=== PATIENT | male | born 1960 | race Caucasian/White ===

== ENCOUNTER 2017-11-04 13:15 | Emergency (ER) | payer OTHER ==
[~2017-11-04] VITALS: Ht 177.8 cm; Wt 88.0 kg
[2017-11-04 13:28] VITALS: BP 156/75; PULSE 57; RESP 16; TEMP 98.3; O2SAT 97
[2017-11-04 14:21] LABS: BASOPHIL # 0.1 TH/MM3 (0-0.2); BASOPHIL % 1.2 % (0.0-2.0); EOSINOPHIL # 0.3 TH/MM3 (0-0.4); EOSINOPHIL % 5.1 % (0.0-4.0); HEMATOCRIT 44.9 % (39.0-51.0); HEMOGLOBIN 15.4 GM/DL (13.0-17.0); LYMPH % 27.2 % (9.0-44.0); LYMPHOCYTE # 1.8 TH/MM3 (1.0-4.8); MEAN CELL VOLUME 86.3 FL (80.0-100.0); MEAN CORPUSCULAR HEMOGLOBIN 29.6 PG (27.0-34.0); MEAN CORPUSCULAR HGB CONC 34.3 % (32.0-36.0); MEAN PLATELET VOLUME 7.6 FL (7.0-11.0); MONO % 7.3 % (0.0-8.0); MONOCYTE # 0.5 TH/MM3 (0-0.9); NEUT % 59.2 % (16.0-70.0); PLATELET COUNT 249 TH/MM3 (150-450); RED CELL DISTRIBUTION WIDTH 13.4 % (11.6-17.2); WHITE BLOOD COUNT 6.8 TH/MM3 (4.0-11.0)
--- NOTE | 2017-11-04 14:26 | RADRPT ---
EXAM DATE/TIME: 11/04/2017 14:21 [facility] COMPARISON: No previous studies available for comparison. INDICATIONS : Dizziness. MEDICAL HISTORY : Hypertension. SURGICAL HISTORY : None. ENCOUNTER: Initial ACUITY: 1 day PAIN SCORE: 0/10 LOCATION: Bilateral chest FINDINGS: PA and lateral views of the chest demonstrate the lungs to be symmetrically aerated without evidence of mass, infiltrate or effusion. The cardiomediastinal contours are unremarkable. Osseous structure s are intact. CONCLUSION: 1. No acute cardiopulmonary disease. Jong Cook MD on November 04, 2017 at 14:23 Board Certified Radiologist. This report was verified electronically.
[2017-11-04 14:29] LABS: PROTHROMBIN TIME - PATIENT 9.8 SEC (9.8-11.6)
[2017-11-04 14:41] LABS: ALT (GPT) 19 U/L (12-78); AST (GOT) 12 U/L (15-37); BICARBONATE 27.7 MEQ/L (21.0-32.0); BLOOD UREA NITROGEN 16 MG/DL (7-18); CALCIUM 9.1 MG/DL (8.5-10.1); CHLORIDE 108 MEQ/L (98-107); CREATININE 0.82 MG/DL (0.60-1.30); GLOMERULAR FILTRATION RATE 97 ML/MIN (>89); GLUCOSE,RANDOM 99 MG/DL (74-106); SODIUM (NA) 143 MEQ/L (136-145)
[2017-11-04 14:44] LABS: ALKALINE PHOSPHATASE 66 U/L (45-117); TOTAL BILIRUBIN ADULT 0.5 MG/DL (0.2-1.0); TOTAL PROTEIN 6.9 GM/DL (6.4-8.2)
[2017-11-04 14:51] LABS: TROPONIN I LESS THAN 0.02 NG/ML (0.02-0.05)
--- NOTE | 2017-11-04 15:48 | RADRPT ---
EXAM DATE/TIME: 11/04/2017 14:53 [facility] COMPARISON: No previous studies available for comparison. INDICATIONS : Dizzy RADIATION DOSE: 56.35 CTDIvol (mGy) MEDICAL HISTORY : None SURGICAL HISTORY : None. ENCOUNTER: Initial ACUITY: 1 day PAIN SCALE: 0/10 LOCATION: cranial TECHNIQUE: Multiple contiguous axial images were obtained of the head. Using automated exposure control and adj ustment of the mA and/or kV according to patient size, radiation dose was kept as low as reasonably a chievable to obtain optimal diagnostic quality images. DICOM format image data is available electro nically for review and comparison. FINDINGS: CEREBRUM: Mild diffuse cerebral atrophy. The ventricles are normal for degree of atrophy. No evidence of midli ne shift, mass lesion, hemorrhage or acute infarction. No extra-axial fluid collections are seen. POSTERIOR FOSSA: The cerebellum and brainstem are intact. The 4th ventricle is midline. The cerebellopontine angle i s unremarkable. EXTRACRANIAL: The visualized portion of the orbits is intact. SKULL: The calvaria is intact. No evidence of skull fracture. CONCLUSION: 1. No acute intracranial abnormality. Jong Cook MD on November 04, 2017 at 15:44 Board Certified Radiologist. This report was verified electronically.
[2017-11-04] MEDS ORDERED: PROCHLORPERAZINE INJ 10 MG/2 ML VIAL IV PUSH ONE (16:00)
[2017-11-04] MEDS ORDERED: diphenhydrAMINE HCL 50 MG/ML VIAL IV PUSH ONE (16:00)
--- NOTE | 2017-11-04 16:06 | PD ---
HPI . Near syncope Chief Complaint: Syncope/Near-Syncope Time Seen by Provider: 15:47 Travel History International Travel<30 days: No Contact w/Intl Traveler<30days: No Traveled to known affect area: No History of Present Illness HPI This patient presented to us by EVAC with the chief complaint of a near syncopal episode. He states that he had just finished eating lunch and had gone to get a refill of his drink before leaving to go back to work. 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 He states that he was standing at the counter and suddenly developed a pressure in his head that made him feel off balance. He denies vertigo. He states that he stood there for a minute and then went back to his truck. He states that his symptoms became so severe that he sat down beside his truck and called 911. He was then brought to us for evaluation and treatment. He states that he never actually had a syncopal event. He just felt like he was going to pass out. He continues to complain with a pressure- like sensation in his head. Onset of symptoms was shortly prior to arrival. Symptom duration was maybe 30 minutes. There were no modifying factors. The patient does report a previous similar history. He is actually currently being evaluated by a biologist aide for this and is wearing an event monitor. [facility] Social History Tobacco Use: No Allergies-Medications (Allergen,Severity, Reaction): Coded Allergies: Sulfa (Sulfonamide Antibiotics) (Verified Allergy, Severe, 11/04/17) Reported Meds & Prescriptions Reported Meds & Active Scripts Active Reported Bisoprolol (Bisoprolol Fumarate) 5 Mg Tab 5 Mg PO DAILY Review of Systems Except as stated in HPI: all other systems reviewed are Neg General / Constitutional: No: Fever, Chills Eyes: No: Diploplia, Blurred Vision HENT: Positive: Headaches, Lightheadedness Cardiovascular: No: Chest Pain or Discomfort Respiratory: No: Shortness of Breath Gastrointestinal: No: Nausea, Vomiting, Diarrhea Physical Exam Narrative GENERAL: Awake and alert and in no distress. SKIN: warm/dry. Normal color and turgor. HEAD: Normocephalic. Atraumatic. EYES: Pupils equal and round. No scleral icterus. No injection or drainage. ENT: No nasal bleeding or discharge. Mucous membranes pink and moist. NECK: Trachea midline. Full range of motion without pain.. CARDIOVASCULAR: Regular rate and rhythm. Heart sounds are normal. RESPIRATORY: No accessory muscle use. Clear to auscultation. Breath sounds equal bilaterally. GASTROINTESTINAL: Abdomen soft. Nontender. Bowel sounds present. Nondistended. MUSCULOSKELETAL: No obvious deformities. NEUROLOGICAL: Awake and alert. No obvious cranial nerve deficits. Motor grossly within normal limits. Normal speech. PSYCHIATRIC: Appropriate mood and affect; insight and judgment normal. Data Data Last Documented VS Vital Signs Date Time Temp Pulse Resp B/P (MAP) Pulse Ox O2 Delivery O2 Flow Rate FiO2 11/04/17 13:28 98.3 57 16 156/75 (102) 97 Orders Orders Electrocardiogram (11/04/17 13:32) Complete Blood Count With Diff (11/04/17 13:32) Comprehensive Metabolic Panel (11/04/17 13:32) Iv Access Insert/Monitor (11/04/17 13:32) Ckmb (Isoenzyme) Profile (11/04/17 13:41) Troponin I (11/04/17 13:41) Prothrombin Time / Inr (Pt) (11/04/17 13:41) Act Partial Throm Time (Ptt) (11/04/17 13:41) Thyroid Stimulating Hormone (11/04/17 13:41) Ct Brain W/O Iv Contrast(Rout) (11/04/17 13:41) Chest, Pa & Lat (11/04/17 13:41) Diphenhydramine Inj (Benadryl Inj) (11/04/17 16:00) Prochlorperazine Inj (Compazine Inj) (11/04/17 16:00) Labs Laboratory Tests Test 11/04/17 14:00 White Blood Count 6.8 TH/MM3 Red Blood Count 5.20 MIL/MM3 Hemoglobin 15.4 GM/DL Hematocrit 44.9 % Mean Corpuscular Volume 86.3 FL Mean Corpuscular Hemoglobin 29.6 PG Mean Corpuscular Hemoglobin Concent 34.3 % Red Cell Distribution Width 13.4 % Platelet Count 249 TH/MM3 Mean Platelet Volume 7.6 FL Neutrophils (%) (Auto) 59.2 % Lymphocytes (%) (Auto) 27.2 % Monocytes (%) (Auto) 7.3 % Eosinophils (%) (Auto) 5.1 % Basophils (%) (Auto) 1.2 % Neutrophils # (Auto) 4.0 TH/MM3 Lymphocytes # (Auto) 1.8 TH/MM3 Monocytes # (Auto) 0.5 TH/MM3 Eosinophils # (Auto) 0.3 TH/MM3 Basophils # (Auto) 0.1 TH/MM3 CBC Comment DIFF FINAL Differential Comment Prothrombin Time 9.8 SEC Prothromb Time International Ratio 1.0 RATIO Activated Partial Thromboplast Time 23.3 SEC Blood Urea Nitrogen 16 MG/DL Creatinine 0.82 MG/DL Random Glucose 99 MG/DL Total Protein 6.9 GM/DL Albumin 4.0 GM/DL Calcium Level 9.1 MG/DL Alkaline Phosphatase 66 U/L Aspartate Amino Transf (AST/SGOT) 12 U/L Alanine Aminotransferase (ALT/SGPT) 19 U/L Total Bilirubin 0.5 MG/DL Sodium Level 143 MEQ/L Potassium Level 4.0 MEQ/L Chloride Level 108 MEQ/L Carbon Dioxide Level 27.7 MEQ/L Anion Gap 7 MEQ/L Estimat Glomerular Filtration Rate 97 ML/MIN Total Creatine Kinase 52 U/L Troponin I LESS THAN 0.02 NG/ML Thyroid Stimulating Hormone 3rd Gen 0.935 uIU/ML MDM Medical Decision Making Medical Screen Exam Complete: Yes Emergency Medical Condition: Yes Interpretation(s) EKG shows a normal sinus rhythm with no acute ischemic changes Differential Diagnosis Differential diagnosis of headache includes but is not limited to migraine, muscle contraction headache, brain tumor, brain bleed Narrative Course This patient presents with a chief complaint of near syncope. This is associated with a pressure-like sensation in his head. He has a normal physical exam. CBC & BMP Diagram 11/04/17 14:00 Total Protein 6.9, Albumin 4.0, Calcium Level 9.1, Alkaline Phosphatase 66, Aspartate Amino Transf (AST/SGOT) 12 L, Alanine Aminotransferase (ALT/SGPT) 19, Total Bilirubin 0.5 trop < 0.02 TSH 0.[address] 11/04/17 1341 Signed Impressions: Service Date/Time: Saturday, November 04, 2017 14:53 - CONCLUSION: 1. No acute intracranial abnormality. Jong Cook MD Chest X-Ray 11/04/17 1341 Signed Impressions: Service Date/Time: Saturday, November 04, 2017 14:21 - CONCLUSION: 1. No acute cardiopulmonary disease. Jong Cook MD On recheck, the patient states that he feels much better. He was asleep. Diagnosis Primary Impression: Near syncope Additional Impression: Headache Qualified Codes: G44.209 - Tension-type headache, unspecified, not intractable Patient Instructions: Acute Headache (DC), General Instructions, Near Syncope ( DC) Disposition: 01 DISCHARGE HOME Condition: Stable Karen Kelley MD Nov 04, 2017 16:06
[2017-11-04] MEDS ORDERED: BISO5TAB5 PO (16:36)
--- NOTE | 2017-11-05 09:39 | EKG ---
Date Performed: 11/04/2017 Time Performed: 13:55:31 PTAGE: 57 years EKG: Sinus rhythm NORMAL ECG NO PREVIOUS TRACING DOCTOR: Semaj Basurto Interpretating Date/Time 11/05/2017 09:37:07
== END 2017-11-04 18:24 | disposition home or self-care (01) ==
LOC: NEPD 13:15
DX: R55 Syncope and collapse (principal); G44.209 Tension-type headache, unspecified, not intractable; I10 Essential (primary) hypertension
CPT/HCPCS: 70450; 71046; 80053; 82550; 84443; 84484; 85025; 85610; 85730; 93005; 96374; 96375; 99285; J0780; J1200